=== PATIENT | male | born 1995 | race Caucasian/White ===

== ENCOUNTER 2016-06-04 00:08 | Emergency (ER) | payer OTHER ==
[2016-06-04 00:13] VITALS: BP 119/80; PULSE 90; RESP 16; TEMP 98.1; O2SAT 93
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
== END 2016-06-04 00:37 | disposition home or self-care (01) ==
DX: S00.81XA Abrasion of other part of head, initial encounter (principal); F17.200 Nicotine dependence, unspecified, uncomplicated; X58.XXXA Exposure to other specified factors, initial encounter

== ENCOUNTER 2016-11-13 03:06 | Observation (INO) | payer OTHER, MEDICAID ==
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
[2016-11-13] MEDS ORDERED: NS 1,000 ML IV ONE (03:38)
[2016-11-13] MEDS ORDERED: ACETAMINOPHEN 500 MG TAB PO ONE (03:41)
[2016-11-13 04:04] LABS: % IMMATURE GRANULYOCYTES 0.5 % (0.0-1.1); ABSOLUTE IMMATURE GRANULOCYTES 0.07 10^3/uL (0.00-0.10); ADD DIFF? NO; ADD MORPH? NO; ADD SCAN? NO; ATYPICAL LYMPHOCYTE FLAG 0 (0-99); FRAGMENT RBC FLAG 0 (0-99); HEMATOCRIT 45.7 % (40.0-51.0); HEMOGLOBIN 15.7 g/dL (13.7-17.5); LEFT SHIFT FLG 0 (0-99); LIPEMIA HEMOLYSIS FLAG 90 (0-99); MEAN CELL HEMOGLOBIN 30.7 pg (27.9-34.1); MEAN CELL HEMOGLOBIN CONCENTR. 34.4 g/dL (32.4-36.7); MEAN CELL VOLUME 89.3 fL (81.5-99.8); MEAN PLATELET VOLUME 10.3 fL (8.7-11.7); PLATELET CLUMPS FLAG 0 (0-99); PLATELET COUNT 250 10^3/uL (150-400); RED BLOOD CELL COUNT 5.12 10^6/uL (4.40-6.38); RED CELL DISTRIBUTION WIDTH 11.9 % (11.5-15.2)
[2016-11-13 04:17] LABS: ANION GAP 17 mEq/L (8-16); CALCIUM 9.4 mg/dL (8.5-10.4); CARBON DIOXIDE 22 mEq/l (22-31); CHLORIDE 105 mEq/L (97-110); CREATININE 1.1 mg/dL (0.7-1.3); ETHANOL SERUM 95 mg/dL (0-10); GLOMERULAR FILTRATION RATE > 60; GLUCOSE 105 mg/dL (70-100); POTASSIUM 3.5 mEq/L (3.5-5.2); SODIUM 144 mEq/L (134-144)
[2016-11-13] MEDS ORDERED: levETIRAcetam 1,000 MG in NS 100 ML IV ONE (04:34)
[2016-11-13] MEDS ORDERED: ONDANSETRON DISINTEGRATING 4 MG TAB PO PRN (04:44)
[2016-11-13] MEDS ORDERED: NALOXONE HCL 0.4 MG/ML INJ IVP PRN (04:44)
[2016-11-13] MEDS ORDERED: ACETAMINOPHEN 325 MG TAB PO PRN (04:44)
[2016-11-13] MEDS ORDERED: ONDANSETRON 4 MG/2 ML VIAL IVP ONE (04:50)
[2016-11-13] MEDS ORDERED: fentaNYL 100 MCG/2 ML INJ ONE (04:54)
[2016-11-13] MEDS ORDERED: fentaNYL 100 MCG/2 ML INJ IVP ONE (04:57)
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
[2016-11-13] MEDS: ONDANSETRON 4 MG/2 ML VIAL IVP PRN (09:31)
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
[2016-11-13] MEDS: NS W/ 20 KCl/L 1,000 ML IV SCH (19:54)
[2016-11-14] MEDS: ONDANSETRON 4 MG/2 ML VIAL IVP PRN (03:13)
[2016-11-14] MEDS: NS W/ 20 KCl/L 1,000 ML IV SCH (03:21)
[2016-11-14 06:13] VITALS: TEMP 99.5
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
[2016-11-14 08:26] VITALS: BP 106/50; PULSE 47; RESP 18; O2SAT 91
== END 2016-11-14 15:07 | disposition home or self-care (01) ==
LOC: F2N 06:02
PROVIDERS: ADMIT Surgery; ATTEND Surgery
PROC: 0HQ0XZZ Repair Scalp Skin, External Approach (ICD-10-PCS; principal; 2016-11-13)
DX: S01.01XA Laceration without foreign body of scalp, initial encounter (principal); S02.19XA Other fracture of base of skull, initial encounter for closed fracture; S06.0X9A Concussion with loss of consciousness of unspecified duration, initial encounter; Y04.8XXA Assault by other bodily force, initial encounter; Y92.59 Other trade areas as the place of occurrence of the external cause
CPT/HCPCS: 12001; 70450; 71020; 72125; 92507; 92523; 97116; 97161; 97165; 97535; G0378; G0480; J1953; J2405; J3010

== ENCOUNTER 2017-07-05 15:41 | Emergency (ER) | payer MEDICAID, OTHER ==
--- NOTE | 2017-07-05 15:47 | EDPHY ---
H & P Time Seen by Provider: 07/05/17 15:47 HPI/ROS: HPI CHIEF COMPLAINT: Left lower eyelid redness and swelling. HISTORY OF PRESENT ILLNESS: Patient is a 22-year-old male, is otherwise healthy with no significant medical history presents emergency room left lower eyelid swelling redness discomfort times 24 hr. No eyeball pain. No change in visual acuity. States the left lower eyelid got swollen and red. No significant drainage no crusting. No fever. No pain with extraocular movements. No proptosis. Past Medical History: No medical history except for history of alcohol use Past Surgical History: No recent surgery Social History: History of alcohol use. Currently in [facility] work release. Family History: Noncontributory ROS REVIEW OF SYSTEMS: A comprehensive 10 point review of systems is otherwise negative aside from elements mentioned in the history of present illness. Exam Constitutional appears well nontoxic triage nursing summary reviewed, vital signs reviewed, awake/alert. Eyes normal conjunctivae and sclera, EOMI, PERRLA. Right eye normal, left eye the left lower eyelid is swollen red appears to be blepharitis. No hordeolum appreciated. No abscess. No evidence of orbital cellulitis or periorbital cellulitis left eye globe intact, no conjunctival injection, no swelling, no drainage HENT normal inspection, atraumatic, moist mucus membranes, no epistaxis, neck supple/ no meningismus, no raccoon eyes. Respiratory clear to auscultation bilaterally, normal breath sounds, no respiratory distress, no wheezing. Cardiovascular rate normal, regular rhythm, no murmur, no edema, distal pulses normal. Gastrointestinal soft, non-tender, no rebound, no guarding, normal bowel sounds, no distension, no pulsatile mass. Genitourinary no CVA tenderness. Musculoskeletal no midline vertebral tenderness, full range of motion, no calf swelling, no tenderness of extremities, no meningismus, good pulses, neurovascularly intact. Skin pink, warm, & dry, no rash, skin atraumatic. Neurologic awake, alert and oriented x 3, AAOx3, moves all 4 extremities equally, motor intact, sensory intact, CN II-XII intact, normal cerebellar, normal vision, normal speech. Psychiatric normal mood/affect. Heme/Lymph/Immune no lymphadenopathy. Differential Diagnosis: Includes but is not limited to in a particular order blepharitis, hordeleum, chalazion. Medical Decision Making: Plan for this patient erythromycin ointment, warm compresses, ophthalmology referral , oral doxycycline. Patient understands if he has worsening eyelid swelling, pain, abscess forming or significant bump/swelling, he should seek further Medical attention. Recommend warm compresses 2 to 3 times a day. Washes eyelids with warm soapy water. Keep his hands clean. Antibiotics as directed. Return precautions discussed. Optho referral given. Source: Patient - Medical/Surgical History Hx Asthma: No Hx Chronic Respiratory Disease: No Hx Diabetes: No Hx Cardiac Disease: No Hx Renal Disease: No Hx Cirrhosis: No Hx Alcoholism: Yes Hx HIV/AIDS: No Hx Splenectomy or Spleen Trauma: No Other PMH: ADD. - Social History Smoking Status: Heavy smoker Constitutional: Initial Vital Signs Temperature (C) 37.2 C 07/05/17 15:50 Heart Rate 57 L 07/05/17 15:50 Respiratory Rate 16 07/05/17 15:50 Blood Pressure 121/74 H 07/05/17 15:50 O2 Sat (%) 95 07/05/17 15:50 O2 Delivery Mode Room Air Allergies/Adverse Reactions: Milk Containing Products [dairy] Allergy (Verified 07/05/17 15:45) Home Medications: Medication Instructions Recorded Doxycycline Hyclate 100 mg PO BID #14 tablet 07/05/17 Erythromycin 0.5% 3.5 gm OP BID #1 opht.oint 07/05/17 Departure - Departure Disposition: Home, Routine, Self-Care Clinical Impression: Blepharitis Qualifiers: Blepharitis type: unspecified type Laterality: left Eyelid: lower Qualified Code(s): H01.005 - Unspecified blepharitis left lower eyelid Instructions: Blepharitis (ED) Additional Instructions: 1. Keep her eyes clean, watch warm soapy water your eyelids and eyelashes. 2. Warm compresses 2 to 3 times a day for 20 min. 3. Do not rub your eye. 4. Keep you're hands Clean 5. Antibiotics as prescribed. 6. Follow up with Ophthalmology. 7. Return emergency room if you have worsening symptoms questions or concerns. Referrals: Jyoti Andres MD [Primary Care Provider] - As per Instructions Peña Otto MD [Medical Doctor] - As per Instructions Prescriptions: Doxycycline Hyclate 100 mg PO BID #14 tablet Erythromycin 0.5% 3.5 gm OP BID #1 opht.oint
[2017-07-05 15:55] VITALS: BP 121/74
== END 2017-07-05 16:13 | disposition home or self-care (01) ==
LOC: CED 15:41
DX: H01.005 Unspecified blepharitis left lower eyelid (principal); F17.200 Nicotine dependence, unspecified, uncomplicated